=== PATIENT | female | born 1985 | race Two or more races ===

== ENCOUNTER 2018-03-30 20:47 | Emergency (ER) | payer SELFPAY ==
[2018-03-30 20:55] VITALS: BP 123/85; PULSE 78; TEMP 98.3; BMI 27.8
--- NOTE | 2018-03-30 21:24 | PDOC ---
History of Present Illness - General History Source: Patient Exam Limitations: No Limitations - History of Present Illness Initial Comments: 03/30/18 21:38 The patient is a 32 year old female with a significant PMH of anemia who presents to the emergency department with lightheadedness prior to her arrival to the ER. The patient states she was driving when she noticed the lightheadedness. The patient describes the lightheadedness as sudden onset, and states she felt nauseous and as if she was going to pass out. The patient also endorses a diffuse headache during presentation. The patient is concerned as she had a rash three days ago after going on a hike for which she took Benadryl but that resolved a day later. The patient denies neck pain, chest pain, shortness of breath, headache and dizziness. Denies fever, chills, nausea, vomit, diarrhea and constipation. Denies dysuria, frequency, urgency and hematuria. Allergies: NKA Past surgical history: None reported. Social history: No reported alcohol, drug, or cigarette use. <Alea Branham - Last Filed: 03/30/18 21:38> <Jaquelin Westfall - Last Filed: 03/31/18 06:32> - General Chief Complaint: Lightheaded Stated Complaint: DIZZYNESS Time Seen by Provider: 03/30/18 21:14 Past History <Alea Branham - Last Filed: 03/30/18 21:38> - Past Medical History Anemia: Yes Asthma: No Cancer: No Cardiac Disorders: No CVA: No COPD: No CHF: No Dementia: No Diabetes: No GI Disorders: No Disorders: No HTN: No Hypercholesterolemia: No Liver Disease: No Seizures: No Thyroid Disease: No - Surgical History Abdominal Surgery: No Appendectomy: No Cardiac Surgery: No Cholecystectomy: No Lung Surgery: No Neurologic Surgery: No Orthopedic Surgery: No - Reproductive History (#): 4 Para: 1 Cervical CA: Yes (pre ca) Dysfunctional Uterine Bleeding: No Ectopic : No Endometrial CA: No Polycystic Ovaries: No Therapeutic (s) & number: Yes (2) Tubal Ligation: No - Suicide/Smoking/Psychosocial Hx Smoking Status: No Smoking History: Never smoked Have you smoked in the past 12 months: No Number of Cigarettes Smoked Daily: 0 Information on smoking cessation initiated: No Hx Alcohol Use: No Drug/Substance Use Hx: No Substance Use Type: None Hx Substance Use Treatment: No <Jaquelin Westfall - Last Filed: 03/31/18 06:32> - Past Medical History Allergies/Adverse Reactions: Allergies Allergy/AdvReac Type Severity Reaction Status Date / Time No Known Drug Allergies Allergy Verified 03/30/18 20:49 Home Medications: Ambulatory Orders NK [No Known Home Medication] 03/30/18 Review of Systems - Review of Systems Able to Perform ROS?: Yes Comments:: 03/30/18 21:39 GENERAL/CONSTITUTIONAL: No fever or chills. No weakness. HEAD, EYES, EARS, NOSE AND THROAT: No change in vision. No ear pain or discharge. No sore throat. CARDIOVASCULAR: No chest pain or shortness of breath. RESPIRATORY: No cough, wheezing, or hemoptysis. GASTROINTESTINAL: No nausea, vomiting, diarrhea or constipation. GENITOURINARY: No dysuria, frequency, or change in urination. MUSCULOSKELETAL: No joint or muscle swelling or pain. No neck or back pain. SKIN: No rash NEUROLOGIC: No headache, vertigo, loss of consciousness, or change in strength/ sensation. ENDOCRINE: No increased thirst. No abnormal weight change. HEMATOLOGIC/LYMPHATIC: No anemia, easy bleeding, or history of blood clots. ALLERGIC/IMMUNOLOGIC: No hives or skin allergy. <Alea Branham - Last Filed: 03/30/18 21:38> *Physical Exam - Vital Signs Last Vital Signs Temp Pulse Resp BP Pulse Ox 98.3 F 78 16 123/85 100 03/30/18 20:51 03/30/18 20:51 03/30/18 20:51 03/30/18 20:51 03/30/18 20:51 - Physical Exam Comments: 03/30/18 21:40 GENERAL: Awake, alert, and fully oriented, in no acute distress HEAD: No signs of trauma EYES: PERRLA, EOMI, sclera anicteric, conjunctiva clear ENT: Auricles normal inspection, hearing grossly normal, nares patent, oropharynx clear without exudates. Moist mucosa NECK: Normal ROM, supple, no lymphadenopathy, JVD, or masses LUNGS: Breath sounds equal, clear to auscultation bilaterally. No wheezes, and no crackles HEART: Regular rate and rhythm, normal S1 and S2, no murmurs, rubs or gallops ABDOMEN: Soft, nontender, normoactive bowel sounds. No guarding, no rebound. No masses EXTREMITIES: Normal range of motion, no edema. No clubbing or cyanosis. No cords, erythema, or tenderness NEUROLOGICAL: Cranial nerves II through XII grossly intact. Normal speech, normal gait SKIN: Warm, Dry, normal turgor, no rashes or lesions noted. <Alea Branham - Last Filed: 03/30/18 21:38> - Vital Signs Last Vital Signs Temp Pulse Resp BP Pulse Ox 98.3 F 78 16 123/85 100 03/30/18 20:51 03/30/18 20:51 03/30/18 20:51 03/30/18 20:51 03/30/18 20:51 <Jaquelin Westfall - Last Filed: 03/31/18 06:32> ED Treatment Course - LABORATORY CBC & Chemistry Diagram: 03/30/18 21:40 03/30/18 23:32 <Jaquelin Westfall - Last Filed: 03/31/18 06:32> Medical Decision Making - Medical Decision Making 03/31/18 00:21 Pt seen/examined. [place] dizzy and nauseated earlier in the day while driving. Possibly decreased PO today. In ED, received IVF and zofran, feeling completely improved. Also reports an urticarial rash approx 1 week ago which resolved days ago. Unclear etiology of her sxs today - no throat pain, no resp compromise, no rash. Overall, pt is very well appearing, fells well and would like to go home. Agrees to f/u with her PMD within the next few days and to return to the ER if sxs worsen. <Jaquelin Westfall - Last Filed: 03/31/18 06:32> *DC/Admit/Observation/Transfer - Attestations Scribe Attestion: 03/30/18 21:40 Documentation prepared by Alea Branham, acting as center medical director for Jaquelin Westfall DO. <Alea Branham - Last Filed: 03/30/18 21:38> - Discharge Dispostion Decision to Admit order: No <Jaquelin Westfall - Last Filed: 03/31/18 06:32> Diagnosis at time of Disposition: Nausea - Discharge Dispostion Disposition: HOME Condition at time of disposition: Stable - Patient Instructions Additional Instructions: Please follow up with your doctor within the next few days. Return if your symptoms worsen. Drink lots of fluids and make sure to eat regularly and get lots of sleep.
[2018-03-30 21:42] LABS: PH,URINE 6.5 (4.5-8); URINE APPEARANCE Clear; URINE BILIRUBIN Negative (NEGATIVE); URINE GLUCOSE (UA) Negative (NEGATIVE); URINE KETONE Negative (NEGATIVE); URINE NITRITE Negative (NEGATIVE); URINE PROTEIN Negative (NEGATIVE); URINE UROBILINOGEN 0.2 (0.2-1.0)
[2018-03-30 21:44] LABS: URINE COLOR YELLOW; URINE LEUK ESTERASE TRACE (NEGATIVE)
[2018-03-30 21:46] LABS: HEMOGLOBIN 12.4 GM/dl (10.7-15.3); WHITE BLOOD COUNT 12.6 K/mm3 (4.0-10.8)
[2018-03-30 21:51] LABS: HEMATOCRIT 35.4 % (32.4-45.2); MCH 32.2 pg (25.7-33.7); MCHC 35.1 g/dl (32.0-36.0); MEAN CELL VOLUME 91.8 fl (80-96); MEAN PLT VOLUME 8.1 fl (7.5-11.1); PLATELET COUNT 413 K/MM3 (134-434); RBC 3.85 M/mm3 (3.60-5.2); RDW 12.7 % (11.6-15.6)
[2018-03-30 21:58] LABS: ALBUMIN 3.9 g/dl (3.5-5.0); ALK PHOS 75 U/L (32-92); ANION GAP 9 (8-16); BILIRUBIN,TOTAL 1.4 mg/dl (0.2-1.0); BLOOD UREA NITROGEN 11 mg/dl (7-18); CALCIUM 9.1 mg/dl (8.4-10.2); CHLORIDE 103 mmol/L (98-107); CO2 24 mmol/L (22-28); CREATININE 0.8 mg/dl (0.6-1.3); GLUCOSE,RANDOM 105 mg/dl (74-106); SGOT/AST 23 U/L (10-42); SGPT/ALT 17 U/L (10-40); SODIUM 136 mmol/L (136-145); TOT PROT 7.3 g/dl (6.4-8.3)
[2018-03-30] MEDS ORDERED: ONDANSETRON 4 MG/2 ML VIAL IVPB ONE (22:28)
[2018-03-30] MEDS ORDERED: SODIUM CHLORIDE 1,000 ML IV STA (22:29)
[2018-03-30] MEDS ORDERED: ONDANSETRON 4 MG/2 ML VIAL ONE (22:43)
[2018-03-30 22:57] LABS: EPI CELLS FEW /HPF; URINE BACTERIA FEW /hpf (NEGATIVE); URINE RBC 0-2 /hpf (0-3)
[2018-03-30 23:04] LABS: PLATELET ESTIMATE SLT INCREASE
--- NOTE | 2018-04-03 08:37 | EKG ---
Test Reason : Blood Pressure : / mmHG Vent. Rate : 073 BPM Atrial Rate : 073 BPM P-R Int : 160 ms QRS Dur : 066 ms QT Int : 376 ms P-R-T Axes : 062 043 039 degrees QTc Int : 414 ms NORMAL SINUS RHYTHM POSSIBLE LEFT ATRIAL ENLARGEMENT BORDERLINE ECG WHEN COMPARED WITH ECG OF 23-JUN-2012 15:39, NO SIGNIFICANT CHANGE WAS FOUND Confirmed by ERICKSON SHIRLEY, DEJUAN ([id number]) on 04/03/2018 8:36:44 AM Referred By: DR BRINK Confirmed By:DEJUAN ALMENDAREZ MD
== END 2018-03-31 00:39 | disposition home or self-care (01) ==
LOC: FER 20:47
PROC: 3E033GC Introduction of Other Therapeutic Substance into Peripheral Vein, Percutaneous Approach (ICD-10-PCS; principal; 2018-03-30)
PROC: 3E0337Z Introduction of Electrolytic and Water Balance Substance into Peripheral Vein, Percutaneous Approach (ICD-10-PCS; 2018-03-30)
DX: R11.0 Nausea (principal)
CPT/HCPCS: 36415; 80053; 81003; 81015; 83690; 84702; 85025; 87086; 93005; 99281-25; J7030

== ENCOUNTER 2020-05-05 04:22 | Emergency (ER) | payer OTHER ==
[2020-05-05 04:30] VITALS: BMI 27.6
[2020-05-05] MEDS ORDERED: SODIUM CHLORIDE 1,000 ML IV STA (04:40)
[2020-05-05] MEDS ORDERED: ONDANSETRON 4 MG/2 ML VIAL IVPUSH ONE (04:40)
[2020-05-05] MEDS ORDERED: ONDANSETRON 4 MG/2 ML VIAL ONE (04:42)
--- NOTE | 2020-05-05 04:45 | PDOC ---
History of Present Illness - General Chief Complaint: Pain, Acute Stated Complaint: ABD PAIN Time Seen by Provider: 05/05/20 04:27 - History of Present Illness Initial Comments: 05/05/20 05:00 This 34-year-old woman without significant past medical history presents with several hour history of nausea and abdominal pain. The patient states that she was awakened at 12 midnight with generalized abdominal pain accompanied by naus ea. The patient has retched and vomited small amounts of bilious material several times since onset of symptoms. No blood or coffee grounds in emesis. She states that the pain is steady and continuous, present throughout her abdomen. She states that she has been constipated for the last few days but this is not unusual for her. She has had no fever/chills. No dysuria, urinary frequency or hematuria. She denies any history of intra-abdominal surgery, bowel obstruction or any other gastrointestinal issues except for chronic constipation Patient had abdominal wall liposuction performed 8 days ago. She continues on Keflex since the procedure. LMP was "last month". Patient is s/p tubal ligation. No vaginal discharge or abnormal bleeding No daily medications except Keflex since liposuction No known drug allergies No smoking; no daily alcohol or other recreational drugs Past History - Medical History Allergies/Adverse Reactions: Allergies Allergy/AdvReac Type Severity Reaction Status Date / Time No Known Drug Allergies Allergy Verified 03/30/18 20:49 Home Medications: Ambulatory Orders Cephalexin [Keflex] 500 mg PO BID 05/05/20 Anemia: Yes Asthma: No Cancer: No Cardiac Disorders: No CVA: No COPD: No CHF: No Dementia: No Diabetes: No GI Disorders: No Disorders: No HTN: No Hypercholesterolemia: No Liver Disease: No Seizures: No Thyroid Disease: No - Surgical History Abdominal Surgery: No Appendectomy: No Cardiac Surgery: No Cholecystectomy: No Lung Surgery: No Neurologic Surgery: No Orthopedic Surgery: No - Reproductive History (#): 4 Para: 1 Cervical CA: Yes (pre ca) Dysfunctional Uterine Bleeding: No Ectopic : No Endometrial CA: No Polycystic Ovaries: No Therapeutic (s) & number: Yes (2) Tubal Ligation: No - Psycho-Social/Smoking History Smoking Status: No Smoking History: Never smoked Have you smoked in the past 12 months: No Number of Cigarettes Smoked Daily: 0 Review of Systems - Review of Systems Able to Perform ROS?: Yes Comments:: 12 point review of systems is negative except for what is noted in the history of present illness *Physical Exam - Vital Signs Last Vital Signs Temp Pulse Resp BP Pulse Ox 98.1 F 103 H 20 113/84 100 05/05/20 04:26 05/05/20 04:26 05/05/20 04:26 05/05/20 04:26 05/05/20 04:26 - Physical Exam GENERAL: Adult female, alert and oriented x3, mild distress secondary to abdominal pain HEAD: Normal with no signs of trauma. EYES: PERRLA, EOMI, sclera anicteric, conjunctiva clear. ENT: Ears normal, nares patent, oropharynx clear without exudates. Dry mucous membranes. NECK: Normal range of motion, supple without lymphadenopathy, JVD, or masses. LUNGS: Breath sounds equal, clear to auscultation bilaterally. No wheezes, and no crackles. HEART:Regular rate and rhythm, normal S1 and S2 without murmur, rub or gallop. ABDOMEN:.normal bowel sounds; moderate generalized tenderness with marked tenderness LLQ without rebound or involuntary guarding; no masses ,no distention. No erythema, edema or tenderness around entry sites of liposuction EXTREMITIES: Normal range of motion, no edema. No clubbing or cyanosis. No erythema, or tenderness. NEUROLOGICAL: Cranial nerves II through XII grossly intact. Normal speech. No focal neurological deficits. MUSCULOSKELETAL: Back non-tender to palpation, no CVA tenderness SKIN: Warm, Dry, normal turgor, no rashes or lesions noted. ED Treatment Course - LABORATORY CBC & Chemistry Diagram: 05/05/20 04:44 05/05/20 04:44 Medical Decision Making - Medical Decision Making 05/05/20 06:04 CBC, chemistry profile sent and patient received a liter normal saline IV, 4 mg and Zofran IV and 1 g of acetaminophen IV Point of care urine negative Patient reports improvement in pain after above medications and hydration Laboratory evaluation notable for white blood cell count of 17,500 with 80% neutrophils; remainder the CBC is essentially normal. Chemistry profile is essentially normal except for minimal decrease in carbon dioxide ( 20). Abdominal/pelvic CT with oral and IV contrast ordered to evaluate for acute abdominal pain with nausea including acute appendicitis, small bowel obstruction, renal colic, less likely acute diverticulitis 05/05/20 07:06 Case signed out to incoming physician at end of shift. Discharge - Discharge Information Problems reviewed: Yes Clinical Impression/Diagnosis: Cellulitis Qualifiers: Site of cellulitis: other site Qualified Code(s): L03.818 - Cellulitis of other sites Condition: Stable Disposition: TRANSFER ACUTE CARE/OTHER HOSP - Follow up/Referral - Patient Discharge Instructions - Post Discharge Activity
[2020-05-05] MEDS ORDERED: ACETAMINOPHEN 1000 MG/100 ML VIAL (NON FORMULARY) IVPB ONE (05:11)
[2020-05-05] MEDS ORDERED: ACETAMINOPHEN INJECTION 100 ML IVPB ONE (05:19)
[2020-05-05 05:33] LABS: BASO % 0.4 % (0-2.0); EOS % 1.1 % (0-4.5); HEMOGLOBIN 11.4 GM/dL (10.7-15.3); LYMPH % 14.5 % (8-40); MCH 30.7 pg (25.7-33.7); MCHC 32.6 g/dl (32.0-36.0); MEAN CELL VOLUME 94.2 fl (80-96); MEAN PLT VOLUME 9.1 fl (7.5-11.1); PLATELET COUNT 348 K/MM3 (134-434); RBC 3.71 M/mm3 (3.60-5.2); RDW 13.8 % (11.6-15.6); WHITE BLOOD COUNT 17.5 K/mm3 (4.0-10.0)
[2020-05-05 05:55] LABS: ALBUMIN 3.3 g/dl (3.4-5.0); BILIRUBIN,TOTAL 0.2 mg/dL (0.2-1); BLOOD UREA NITROGEN 15.1 mg/dL (7-18); CALCIUM 9.3 mg/dL (8.5-10.1); CREATININE 0.8 mg/dL (0.55-1.3); POTASSIUM 4.4 mmol/L (3.5-5.1)
[2020-05-05 09:15] LABS: EPITHELIAL CELLS FEW /hpf
[2020-05-05] MEDS ORDERED: PIPERACILLIN/TAZOB 3.375 GM 3.375 GM in DEXTROSE 5%-WATER - 50 ML IVPB ONE (09:52)
[2020-05-05] MEDS ORDERED: VANCOMYCIN 1,000 MG in DEXTROSE 5%-WATER - 250 ML IVPB ONE (09:52)
[2020-05-05] MEDS ORDERED: VANCOMYCIN 1,000 MG VIAL (RESTRICTED TO ID ONLY) ONE (10:13)
[2020-05-05] MEDS ORDERED: PIPERACILLIN/TAZOBACTAM 3.375 GM VIAL IVPB ONE (10:14)
--- NOTE | 2020-05-05 11:32 | PDOC ---
*Physical Exam - Vital Signs Last Vital Signs Temp Pulse Resp BP Pulse Ox 99.9 F H 97 H 16 120/81 100 05/05/20 11:12 05/05/20 09:53 05/05/20 09:53 05/05/20 09:53 05/05/20 09:53 ED Treatment Course - LABORATORY CBC & Chemistry Diagram: 05/05/20 04:44 05/05/20 04:44 - ADDITIONAL ORDERS Additional order review: Laboratory Results 05/05/20 05/05/20 05/05/20 10:00 06:15 04:44 Sodium 138 Potassium 4.4 Chloride 106 Carbon Dioxide 20 L Anion Gap 13 BUN 15.1 Creatinine 0.8 Est GFR (CKD-EPI)AfAm 109.93 Est GFR (CKD-EPI)NonAf 94.85 Random Glucose 113 H Calcium 9.3 Total Bilirubin 0.2 AST 16 ALT 24 Alkaline Phosphatase 66 Creatine Kinase 49 Total Protein 7.0 Albumin 3.3 L Lipase 148 Urine Color Not Urine Appearance Not Urine pH 6.0 Urine Protein Negative Urine Glucose (UA) Negative Urine Ketones Negative Urine Blood Negative Urine Nitrite Negative Urine Bilirubin Negative Urine Urobilinogen 1.0 Ur Leukocyte Esterase 1+ Urine RBC 0-2 Urine WBC 10-20 Ur Transition Epith Cell Few Urine Bacteria Moderate Urine Yeast Rare 05/05/20 04:44 RBC 3.71 MCV 94.2 MCHC 32.6 RDW 13.8 MPV 9.1 Neutrophils % 80.0 D Lymphocytes % 14.5 D Monocytes % 4.0 Eosinophils % 1.1 Basophils % 0.4 - Medications Given in the ED: ED Medications Discontinued Medications Generic Name Dose Route Start Last Admin Trade Name Dejan PRN Reason Stop Dose Admin Acetaminophen 1,000 mg 05/05/20 05:11 05/05/20 05:22 Ofirmev Injection - IVPB 05/05/20 05:12 1,000 mg ONCE ONE Administration Sodium Chloride 1,000 mls @ 1,000 mls/hr 05/05/20 04:40 05/05/20 04:46 Normal Saline - IV 05/05/20 05:39 1,000 mls/hr ASDIR STA Administration Vancomycin HCl 1,000 mg/ 250 mls @ 250 mls/hr 05/05/20 09:52 05/05/20 11:01 Dextrose IVPB 05/05/20 10:51 250 mls/hr ONCE ONE Administration Protocol Piperacillin Sod/Tazobactam 50 mls @ 100 mls/hr 05/05/20 09:52 05/05/20 10:31 Sod 3.375 gm/ Dextrose IVPB 05/05/20 10:21 100 mls/hr ONCE ONE Administration Protocol Ondansetron HCl 4 mg 05/05/20 04:40 05/05/20 04:46 Zofran Injection IVPUSH 05/05/20 04:41 4 mg ONCE ONE Administration Medical Decision Making - Medical Decision Making 05/05/20 11:31 Patient signed out to me pending CAT scan. Postoperative day 10 status post liposuction of lower abdomen and back CT demonstrates subcutaneous cellulitis given white blood cell count of 17 decision made to broaden antibiotic coverage with vancomycin and Zosyn as patient has already been on Keflex Case discussed with covering plastic surgeon Dr. Narayanan, agrees with plan to transfer to [place] for observation and evaluation by plastic surgery team of group who performed procedure Case discussed with [place] transfer center accepted for ED to ED transfer accepting ED physician All questions answered by patient patient stable comfortable at this time labs faxed to [place] awaiting transfer by EMS Discharge - Discharge Information Problems reviewed: Yes Clinical Impression/Diagnosis: Cellulitis Qualifiers: Site of cellulitis: other site Qualified Code(s): L03.818 - Cellulitis of other sites Condition: Stable Disposition: TRANSFER ACUTE CARE/OTHER HOSP - Admission No - Follow up/Referral - Patient Discharge Instructions - Post Discharge Activity
[2020-05-05 11:44] VITALS: BP 106/69; PULSE 84
[2020-05-05 12:14] VITALS: TEMP 99
== END 2020-05-05 12:21 | disposition short-term general hospital (02) ==
LOC: FER 04:22
PROC: 3E03329 Introduction of Other Anti-infective into Peripheral Vein, Percutaneous Approach (ICD-10-PCS; principal; 2020-05-05)
PROC: 3E033GC Introduction of Other Therapeutic Substance into Peripheral Vein, Percutaneous Approach (ICD-10-PCS; 2020-05-05)
PROC: 3E0337Z Introduction of Electrolytic and Water Balance Substance into Peripheral Vein, Percutaneous Approach (ICD-10-PCS; 2020-05-05)
DX: L03.818 Cellulitis of other sites (principal)
CPT/HCPCS: 36415; 74177-TC; 80053; 81003; 81015; 81025; 82550; 83605; 83690; 85025; 87040; 99285-25; J0131; Q9967; U0003

== ENCOUNTER 2023-12-08 04:28 | Emergency (ER) | payer OTHER ==
[2023-12-08] MEDS ORDERED: ONDANSETRON *ODT* 4 MG TABLET ONE (04:35)
[2023-12-08] MEDS ORDERED: MECLIZINE HCL 25 MG TABLET (FP) ONE (04:37)
[2023-12-08] MEDS: ONDANSETRON *ODT* 4 MG TABLET SL ONE (04:38)
[2023-12-08] MEDS: ONDANSETRON 4 MG/2 ML VIAL IVPUSH ONE (04:55)
[2023-12-08] MEDS: MECLIZINE HCL 25 MG TABLET (FP) PO ONE (04:56)
[2023-12-08] MEDS ORDERED: ONDANSETRON 4 MG/2 ML VIAL ONE (04:57)
[2023-12-08] MEDS: SODIUM CHLORIDE 1,000 ML IV ONE (05:02)
[2023-12-08 05:03] VITALS: BP 113/83; PULSE 80; RESP 18; TEMP 98.3; BMI 28.9
== END 2023-12-08 06:16 | disposition home or self-care (01) ==
LOC: FER 04:28
PROC: 3E033GC Introduction of Other Therapeutic Substance into Peripheral Vein, Percutaneous Approach (ICD-10-PCS; principal; 2023-12-08)
PROC: 3E0337Z Introduction of Electrolytic and Water Balance Substance into Peripheral Vein, Percutaneous Approach (ICD-10-PCS; 2023-12-08)
DX: R42 Dizziness and giddiness (principal); R11.2 Nausea with vomiting, unspecified
CPT/HCPCS: 99284-25; Q0162